=== PATIENT | female | born 1990 | race Hispanic/Latino ===

== ENCOUNTER 2017-07-25 17:46 | Emergency (ER) | payer SELFPAY ==
[2017-07-25 20:58] VITALS: BP 116/62
== END 2017-07-25 21:02 | disposition home or self-care (01) ==
LOC: FSED 17:46
DX: O26.91 Pregnancy related conditions, unspecified, first trimester (principal); R10.2 Pelvic and perineal pain
CPT/HCPCS: 76801; 76817; 81025; 99283